=== PATIENT | female | born 1995 ===

== ENCOUNTER 2018-02-24 20:35 | Emergency (ER) | payer OTHER ==
[2018-02-24] MEDS ORDERED: Albuterol-Ipratrop 3 mg / 0.5 (3 ml) UD INH STA (22:12)
[2018-02-24] MEDS ORDERED: Albuterol-Ipratrop 3 mg / 0.5 (3 ml) UD ONE (22:21)
--- NOTE | 2018-02-24 23:00 | C.PDOC ---
History Of Present Illness 23 year old female presents to the ER for a dry nonproductive cough, poorly controlled asthma, and digitally/positionally reproducible left lower rib pain beneath the breast. Patient has no nebulizer machine at home. Denies rash, fever , or chills. Time Seen by Provider: 02/24/18 22:04 Chief Complaint (Nursing): Chest Pain History Per: Patient History/Exam Limitations: no limitations Onset/Duration Of Symptoms: Hrs Current Symptoms Are (Timing): Still Present Associated Symptoms: Dyspnea Modifying Factors: None Exacerbating Factors: Movement Alleviating Factors: None Recent travel outside of the [place]: No Past Medical History Reviewed: Historical Data, Nursing Documentation, Vital Signs Vital Signs: Last Vital Signs Temp 99 F 02/24/18 23:54 Pulse 80 02/24/18 23:54 Resp 20 02/24/18 23:54 BP 110/70 02/24/18 23:54 Pulse Ox 98 02/24/18 23:54 - Medical History PMH: Asthma Surgical History: Appendectomy Family History: States: Unknown Family Hx - Social History Hx Alcohol Use: Yes Hx Substance Use: No - Immunization History Hx Tetanus Toxoid Vaccination: No Hx Influenza Vaccination: No Hx Pneumococcal Vaccination: No Review Of Systems Constitutional: Negative for: Fever, Chills Cardiovascular: Negative for: Chest Pain, Palpitations Respiratory: Positive for: Cough, Shortness of Breath Gastrointestinal: Negative for: Nausea, Vomiting Musculoskeletal: Positive for: Other (Left rib pain) Physical Exam - Physical Exam Appears: Non-toxic Skin: Normal Color, Warm, Dry Head: Atraumatic, Normacephalic Oral Mucosa: Moist Chest: Symmetrical, Tenderness (Digitally reproducible pain below left breast to anterior mid clavicular and axillary line around T5) Cardiovascular: Rhythm Regular Respiratory: No Rales, No Rhonchi, Wheezing (Mild inspiratory and expiratory) Gastrointestinal/Abdominal: Soft, No Tenderness Neurological/Psych: Oriented x3, Normal Speech ED Course And Treatment O2 Sat by Pulse Oximetry: 100 (Room air) Pulse Ox Interpretation: Normal Medical Decision Making Medical Decision Making: asthma exacerbation, moderate MDI technique, costochondritis. Disposition Doctor Will See Patient In The: Office Counseled Patient/Family Regarding: Studies Performed, Diagnosis - Disposition Disposition: HOME/ ROUTINE Disposition Time: 23:01 Condition: GOOD Additional Instructions: prednisone 40 mg daily for 4 more days (to complete 5 days of prednisone) Pepcid 20 mg @ night to prevent stomach irritation from the prednisone Albuterol puffer using the Aerochamber Spacer 5-7 x/day (2 puffs each time, by 15 seconds) follow-up your pmd or our Clinic as needed. Prescriptions: Albuterol HFA [Ventolin HFA 90 mcg/actuation (8 g)] 200 puff IH Q4H PRN #2 puff PRN Reason: asthma Albuterol/Ipratropium [Duoneb 3 MG/3 Ml-0.5 MG/3 Ml 3 Ml] 6 ml IH Q4H PRN #100 neb PRN Reason: asthma Nebulizer [Compact Compressor Nebulizer] 1 dev XX PRN PRN #1 dev PRN Reason: asthma Prednisone [Deltasone] 40 mg PO DAILY #8 tablet Spacer, Inhalation [Aerochamber] 1 dev IH DAILY #1 dev Instructions: Costochondritis, Asthma, Adult (DC), How to Use Your Metered Dose Inhaler (Adults) Forms: [employer] (Urdu) - Clinical Impression Clinical Impression: Chest discomfort, Asthma - Scribe Statement The provider has reviewed the documentation as recorded by the Scribe Jose Mckoy All medical record entries made by the Scribe were at my direction and personally dictated by me. I have reviewed the chart and agree that the record accurately reflects my personal performance of the history, physical exam, medical decision making, and the department course for this patient. I have also personally directed, reviewed, and agree with the discharge instructions and disposition.
[2018-02-24 23:55] VITALS: BP 110/70; PULSE 80; RESP 20; TEMP 99
[2018-02-25 00:43] VITALS: O2SAT 100
--- NOTE | 2018-02-25 11:08 | CARD ---
APPROVED REPORT EKG Measurement Heart [id number] MD [id number] <Conclusion> Normal sinus rhythm with sinus arrhythmia Normal ECG
== END 2018-02-24 23:54 | disposition home or self-care (01) ==
LOC: C.ER 20:35
DX: J45.909 Unspecified asthma, uncomplicated (principal); R07.89 Other chest pain; F17.210 Nicotine dependence, cigarettes, uncomplicated

== ENCOUNTER 2018-06-10 18:22 | Emergency (ER) | payer OTHER ==
[2018-06-10 18:38] VITALS: BP 99/62; PULSE 88; RESP 19; TEMP 98.6; O2SAT 97
--- NOTE | 2018-06-10 19:03 | C.PDOC ---
History Of Present Illness 23 year old female presents to the ED with rash under her nose since a week ago. She notes that the skin becomes very dry on washing and it is painful to touch. She also complains of rhinorrhea. She denies taking any medication to relieve symptoms. She denies any fever, chills, and nausea. Time Seen by Provider: 06/10/18 18:54 Chief Complaint (Nursing): Abnormal Skin Integrity History Per: Patient History/Exam Limitations: no limitations Onset/Duration Of Symptoms: Days Current Symptoms Are (Timing): Still Present Past Medical History Vital Signs: Last Vital Signs Temp 98.6 F 06/10/18 18:34 Pulse 88 06/10/18 18:34 Resp 19 06/10/18 18:34 BP 99/62 L 06/10/18 18:34 Pulse Ox 97 06/10/18 18:34 - Medical History PMH: Asthma Surgical History: Appendectomy Family History: States: Unknown Family Hx - Social History Hx Alcohol Use: Yes Hx Substance Use: No - Immunization History Hx Tetanus Toxoid Vaccination: No Hx Influenza Vaccination: No Hx Pneumococcal Vaccination: No Review Of Systems Except As Marked, All Systems Reviewed And Found Negative. Constitutional: Negative for: Fever, Chills ENT: Positive for: Nose Pain (rash at the nasal philtrum ), Nose Discharge Gastrointestinal: Negative for: Nausea Physical Exam - Physical Exam Appears: Well, Non-toxic, No Acute Distress Skin: Warm, Dry, Rash (bright erythema and crusting with fine papules at the nasal philtrum) Head: Atraumatic, Normacephalic Eye(s): bilateral: Normal Inspection Nose: Normal Oral Mucosa: Moist Neck: Normal ROM Chest: Symmetrical Extremity: Bilateral: Atraumatic, Normal Color And Temperature, Normal ROM Neurological/Psych: Oriented x3, Normal Speech Gait: Steady ED Course And Treatment O2 Sat by Pulse Oximetry: 97 (RA) Pulse Ox Interpretation: Normal Medical Decision Making Medical Decision Making: Impression: 23 year old female ED with rash at the nasal philtrum Dispo: Patient prescribed Mupirocin 2%. Patient feels comfortable going home and will be discharged. Patient given follow up instructions. Disposition Counseled Patient/Family Regarding: Diagnosis, Need For Followup, Rx Given - Disposition Referrals: Denver Aviles MD [Staff Provider] - Disposition: HOME/ ROUTINE Disposition Time: 19:03 Condition: GOOD Additional Instructions: apply ointment to affected area as directed follow up with maintenance pipefitter if symptoms persist Prescriptions: Mupirocin 2% Ointment [Bactroban Ointment] 15 gm EXT BID #1 tube Instructions: Eczema (Atopic Dermatitis) (DC) Forms: [employer] ([place] Islander) - Clinical Impression Clinical Impression: Dermatitis - PA / COMMUNITY SUPPORT ASSOCIATE / Resident Statement MD/DO has reviewed & agrees with the documentation as recorded. - Scribe Statement The provider has reviewed the documentation as recorded by the Scribe (Lamberto Jeff) All medical record entries made by the Scribe were at my direction and personally dictated by me. I have reviewed the chart and agree that the record accurately reflects my personal performance of the history, physical exam, medical decision making, and the department course for this patient. I have also personally directed, reviewed, and agree with the discharge instructions and disposition.
== END 2018-06-10 19:25 | disposition home or self-care (01) ==
LOC: C.ER 18:22
DX: L30.9 Dermatitis, unspecified (principal)

== ENCOUNTER 2018-06-16 16:18 | Emergency (ER) | payer OTHER ==
[2018-06-16 16:27] VITALS: BP 112/72; PULSE 76; RESP 16; TEMP 99; O2SAT 97
--- NOTE | 2018-06-16 17:47 | C.PDOC ---
History Of Present Illness pt here with rash under nose, sts she was seen here recently, given mupurocin, which decreased rash; pt has lost rx, pt now sts she has some satellite new linette-oral lesions and requesting nrew rx for meds. pt sts she has f/u appt in clinic tomorrow. no fever. Time Seen by Provider: 06/16/18 17:25 Chief Complaint (Nursing): Abnormal Skin Integrity History Per: Patient History/Exam Limitations: no limitations Onset/Duration Of Symptoms: Days Current Symptoms Are (Timing): Still Present Severity: Moderate Past Medical History Reviewed: Historical Data, Nursing Documentation, Vital Signs Vital Signs: Last Vital Signs Temp 99 F 06/16/18 16:23 Pulse 76 06/16/18 16:23 Resp 16 06/16/18 16:23 BP 112/72 06/16/18 16:23 Pulse Ox 97 06/16/18 16:23 - Medical History PMH: Asthma Surgical History: Appendectomy Family History: States: No Known Family Hx - Social History Hx Alcohol Use: Yes Hx Substance Use: No - Immunization History Hx Tetanus Toxoid Vaccination: No Hx Influenza Vaccination: No Hx Pneumococcal Vaccination: No Review Of Systems Constitutional: Negative for: Fever, Chills Skin: Positive for: Rash Physical Exam - Physical Exam Appears: Non-toxic, No Acute Distress Skin: Warm, Dry, Other (crusty papules in philtrum of nose, some 2 mm eyrthematous scattered linette-oral papules ) Head: Atraumatic, Normacephalic Eye(s): bilateral: Normal Inspection Neck: Supple Chest: Symmetrical Neurological/Psych: Oriented x3, Normal Speech ED Course And Treatment O2 Sat by Pulse Oximetry: 97 (RA) Pulse Ox Interpretation: Normal Medical Decision Making Medical Decision Making: Patient has been discharged with prescription for Bactroban ointment and instructed to follow up in clinic tomorrow. Disposition Counseled Patient/Family Regarding: Diagnosis, Need For Followup, Rx Given - Disposition Referrals: [facility] [Outside] Disposition: HOME/ ROUTINE Disposition Time: 17:47 Condition: GOOD Additional Instructions: Use thin layer of cream to affected areas two times a day. Follow up in clinic tomorrow. Prescriptions: Mupirocin 2% Ointment [Bactroban Ointment] 15 gm TOP BID #1 tube Instructions: Impetigo (DC) Forms: [facility] (Vincentian), General Discharge Instructions - Clinical Impression Clinical Impression: Impetigo - PA / PROGRESS DEVELOPER / Resident Statement MD/DO has reviewed & agrees with the documentation as recorded. - Scribe Statement The provider has reviewed the documentation as recorded by the Scribe Iraj Figueroa Provider Attestation All medical record entries made by the Scribe were at my direction and personally dictated by me. I have reviewed the chart and agree that the record accurately reflects my personal performance of the history, physical exam, medical decision making, and the department course for this patient. I have also personally directed, reviewed, and agree with the discharge instructions and disposition.
== END 2018-06-16 18:02 | disposition home or self-care (01) ==
LOC: C.ER 16:18
DX: L01.00 Impetigo, unspecified (principal)

== ENCOUNTER 2018-06-30 10:03 | Emergency (ER) | payer OTHER ==
[2018-06-30] MEDS ORDERED: Albuterol 0.083% Inhal Sol (2.5 mg/3 mL) UD ONE (10:11)
[2018-06-30] MEDS ORDERED: Albuterol 0.083% Inhal Sol (2.5 mg/3 mL) UD INH STA (10:20)
[2018-06-30 10:21] VITALS: PULSE 103; TEMP 98.6; O2SAT 100
[2018-06-30] MEDS ORDERED: Albuterol-Ipratrop 3 mg / 0.5 (3 ml) UD ONE ×2 (10:26→10:31)
[2018-06-30] MEDS ORDERED: Albuterol-Ipratrop 3 mg / 0.5 (3 ml) UD INH STA (10:28)
--- NOTE | 2018-06-30 10:46 | C.PDOC ---
History Of Present Illness 23 y/o female with history of Asthma presents to ED with c/o asthma exacerbation consistent with sob and non productive cough since this morning. Patient is speaking in full sentences and denies fever, chest pain, nausea, vomiting or any other complaints at this time. Time Seen by Provider: 06/30/18 10:19 Chief Complaint (Nursing): Shortness Of Breath History Per: Patient History/Exam Limitations: no limitations Onset/Duration Of Symptoms: Hrs Current Symptoms Are (Timing): Still Present Initiating Event: Upper Respiratory Illness Past Medical History Reviewed: Historical Data, Nursing Documentation, Vital Signs Vital Signs: Last Vital Signs Temp 98.6 F 06/30/18 10:16 Pulse 103 H 06/30/18 10:16 Resp 24 06/30/18 10:16 BP Pulse Ox 100 06/30/18 10:16 - Medical History PMH: Asthma Surgical History: Appendectomy Family History: States: No Known Family Hx - Social History Hx Alcohol Use: Yes Hx Substance Use: No - Immunization History Hx Tetanus Toxoid Vaccination: No Hx Influenza Vaccination: No Hx Pneumococcal Vaccination: No Review Of Systems Constitutional: Negative for: Fever, Chills Cardiovascular: Negative for: Chest Pain Respiratory: Positive for: Cough, Shortness of Breath Gastrointestinal: Negative for: Nausea, Vomiting Physical Exam - Physical Exam Appears: Non-toxic, No Acute Distress Skin: Warm, Dry, No Rash Head: Atraumatic, Normacephalic Eye(s): bilateral: Normal Inspection Oral Mucosa: Moist Neck: Normal ROM, Supple Chest: Symmetrical Cardiovascular: Rhythm Regular Respiratory: No Rales, No Rhonchi, Wheezing (minimal bilateral expiratory) Gastrointestinal/Abdominal: Soft, No Tenderness, No Guarding, No Rebound Extremity: No Pedal Edema, Capillary Refill (<2 seconds) Neurological/Psych: Oriented x3, Normal Speech, Normal Cognition ED Course And Treatment O2 Sat by Pulse Oximetry: 100 (RA) Pulse Ox Interpretation: Normal Progress Note: On re evaluation patient feeling sylvie, in no acute distress and on re exam lungs are clear. Patient discharged with follow up to PMD in 2-3 days. Disposition - Disposition Referrals: Ad[facility] Officer [facility] [Outside] [facility] [Outside] Disposition: HOME/ ROUTINE Disposition Time: 11:00 Condition: IMPROVED Additional Instructions: YAIMA WITT, thank you for letting us take care of you today. Your provider was Jono Ramos DO and you were treated for SOB/ASTHMA. The emergency medical care you received today was directed at your acute symptoms. If you were prescribed any medication, please fill it and take as directed. It may take several days for your symptoms to resolve. Return to the Emergency Department if your symptoms worsen, do not improve, or if you have any other problems. Please contact your doctor or call one of the physicians/clinics you have been referred to that are listed on the Patient Visit Information form that is included in your discharge packet. Bring any paperwork you were given at discharge with you along with any medications you are taking to your follow up visit. Our treatment cannot replace ongoing medical care by a primary care provider outside of the emergency department. Thank you for allowing the [facility] team to be part of your care today. Start prednisone prescription tomorrow morning. Follow up with the clinic in 3-5 days for re-evaluation and further management. Prescriptions: predniSONE [Prednisone] 40 mg PO DAILY #10 tab Instructions: Asthma, Adult (DC) Forms: [employer] ([place] Islander), Work Excuse - Clinical Impression Clinical Impression: Asthma - Scribe Statement The provider has reviewed the documentation as recorded by the Scribe Demetrice Ocasio All medical record entries made by the Carleenibe were at my direction and personally dictated by me. I have reviewed the chart and agree that the record accurately reflects my personal performance of the history, physical exam, medical decision making, and the department course for this patient. I have also personally directed, reviewed, and agree with the discharge instructions and disposition.
[2018-06-30 11:23] VITALS: RESP 16
== END 2018-06-30 11:20 | disposition home or self-care (01) ==
LOC: C.ER 10:03
DX: J45.909 Unspecified asthma, uncomplicated (principal)

== ENCOUNTER 2018-07-09 12:22 | Emergency (ER) | payer OTHER ==
[2018-07-09 12:44] VITALS: BP 117/82; PULSE 80; RESP 19; TEMP 99; O2SAT 100
--- NOTE | 2018-07-09 13:07 | C.PDOC ---
History Of Present Illness 23 y/o female pt presents to the ER for c/o dental pain. Pt reports there is pain in her left upper molar and that her tooth filling fell out. Pt denies fever, chills and trauma. Time Seen by Provider: 07/09/18 12:50 Chief Complaint (Nursing): Dental Pain History Per: Patient History/Exam Limitations: no limitations Onset/Duration Of Symptoms: Hrs Current Symptoms Are (Timing): Still Present Severity: Mild Past Medical History Reviewed: Historical Data, Nursing Documentation, Vital Signs Vital Signs: Last Vital Signs Temp 99 F 07/09/18 12:41 Pulse 80 07/09/18 12:41 Resp 19 07/09/18 12:41 BP 117/82 07/09/18 12:41 Pulse Ox 100 07/09/18 12:41 - Medical History PMH: Asthma Surgical History: Appendectomy Family History: States: Unknown Family Hx - Social History Hx Alcohol Use: Yes Hx Substance Use: No - Immunization History Hx Tetanus Toxoid Vaccination: No Hx Influenza Vaccination: No Hx Pneumococcal Vaccination: No Review Of Systems Except As Marked, All Systems Reviewed And Found Negative. Constitutional: Negative for: Fever, Chills ENT: Positive for: Other (left upper molar dental pain; no trauma to teeth ) Physical Exam - Physical Exam Appears: Well, Non-toxic, No Acute Distress Skin: Normal Color, Warm, Dry Head: Normacephalic Eye(s): bilateral: Normal Inspection, EOMI Ear(s): Bilateral: Normal Teeth: Caries (left upper molar ) Gingiva: Erythema, No Swelling, No Bleeding, No Abscess Throat: Normal Respiratory: Normal Breath Sounds Gastrointestinal/Abdominal: Normal Exam Neurological/Psych: Oriented x3, Normal Speech Gait: Steady ED Course And Treatment O2 Sat by Pulse Oximetry: 100 (RA) Pulse Ox Interpretation: Normal Progress Note: Treated with motrin and Pen VK. Discharged in stable condition Reassessment Condition: Improved Medical Decision Making Medical Decision Making: Impression: dental pain Plans: -- ibuprofen -- penicillin Reassess: Patient is resting comfortably. Tolerating PO. Patient is instructed to f/u with clinic for further evaluation. Disposition Counseled Patient/Family Regarding: Diagnosis, Need For Followup, Rx Given - Disposition Referrals: [facility] [Provider Group] [facility] [Provider Group] Disposition: HOME/ ROUTINE Disposition Time: 13:20 Condition: IMPROVED Additional Instructions: Follow up with dental clinic for further evaluation Prescriptions: Ibuprofen [Motrin Tab] 800 mg PO TID PRN #15 tab PRN Reason: Pain, Mild (1-3) Penicillin VK [Penicillin VK Tab] 1 tab PO TID #21 tab Instructions: Tooth Decay, Adult Forms: [facility] (Polish) - POA Present On Arrival: None - Clinical Impression Clinical Impression: Dental caries, Dental abscess - PA / BRAKE TESTER / Resident Statement / has reviewed & agrees with the documentation as recorded. - Scribe Statement The provider has reviewed the documentation as recorded by the Mey Tong Do All medical record entries made by the Mey were at my direction and personally dictated by me. I have reviewed the chart and agree that the record accurately reflects my personal performance of the history, physical exam, medical decision making, and the department course for this patient. I have also personally directed, reviewed, and agree with the discharge instructions and disposition.
== END 2018-07-09 13:29 | disposition home or self-care (01) ==
LOC: C.ER 12:22
DX: K02.9 Dental caries, unspecified (principal); K04.7 Periapical abscess without sinus

== ENCOUNTER 2019-01-08 01:48 | Emergency (ER) | payer OTHER ==
[2019-01-08 01:57] VITALS: BMI 30.1
[2019-01-08 02:01] VITALS: RESP 18; O2SAT 100
--- NOTE | 2019-01-08 02:28 | C.PDOC ---
History Of Present Illness 23-year-old female presents to the ED for evaluation of an abscess to her right upper inner thigh for two days. Patient has been applying warm compresses tot he area. She states the area has gotten bigger with a ortega, and presents to the ED for further evaluation. She reports having an abscess in the past, and underwent I&D of the same area. She denies fever, chills. Time Seen by Provider: 01/08/19 01:58 Chief Complaint (Nursing): Abnormal Skin Integrity History Per: Patient History/Exam Limitations: no limitations Onset/Duration Of Symptoms: Days (2) Current Symptoms Are (Timing): Still Present Past Medical History Reviewed: Historical Data, Nursing Documentation, Vital Signs Vital Signs: Last Vital Signs Temp 98.1 F 01/08/19 01:57 Pulse 76 01/08/19 01:57 Resp 18 01/08/19 01:57 BP 123/84 01/08/19 01:57 Pulse Ox 100 01/08/19 01:57 Primary Care Provider: FAMILY PROVIDER,NO - Medical History PMH: Asthma Surgical History: Appendectomy Family History: States: Unknown Family Hx - Social History Hx Alcohol Use: Yes Hx Substance Use: No - Immunization History Hx Tetanus Toxoid Vaccination: No Hx Influenza Vaccination: No Hx Pneumococcal Vaccination: No Review Of Systems Constitutional: Negative for: Fever, Chills, Weakness Skin: Positive for: Other (abscess to right upper inner thigh ). Negative for: Rash Neurological: Negative for: Weakness, Numbness, Dizziness Physical Exam - Physical Exam Appears: Non-toxic, No Acute Distress Skin: Normal Color, Warm, No Rash, Other (1cm area of induration and tenderness to right upper inner thigh, with ortega noted ) Extremity: Normal ROM Neurological/Psych: Oriented x3 ED Course And Treatment O2 Sat by Pulse Oximetry: 100 (on RA ) Pulse Ox Interpretation: Normal - Incision & Drainage Of Abscess Prep Used: Sterile Water Procedure: Incised W/Scalpel Blade#: (11), Drained Pus, Irrigated Cavity W/Saline Medical Decision Making Medical Decision Making: Keflex PO given. Unable to pack the area with gauze since the incision hole is too small. Patient advised to apply warm compresses to the area and is given wound check f/u instructions. Disposition Counseled Patient/Family Regarding: Diagnosis, Need For Followup, Rx Given - Disposition Disposition: HOME/ ROUTINE Disposition Time: 02:28 Condition: STABLE Prescriptions: Cephalexin [Keflex] 500 mg PO TID #7 capsule Instructions: Abscess Incision and Drainage (DC) Forms: [facility] (Barbadian), General Discharge Instructions - Clinical Impression Clinical Impression: Abscess - PA / CARTON WRAPPER / Resident Statement MD/DO has reviewed & agrees with the documentation as recorded. - Scribe Statement The provider has reviewed the documentation as recorded by the Scribe (Laurence Pisano) All medical record entries made by the Scribe were at my direction and personally dictated by me. I have reviewed the chart and agree that the record accurately reflects my personal performance of the history, physical exam, medical decision making, and the department course for this patient. I have also personally directed, reviewed, and agree with the discharge instructions and disposition.
[2019-01-08 02:32] VITALS: BP 128/86; PULSE 72; TEMP 98.3
== END 2019-01-08 02:39 | disposition home or self-care (01) ==
LOC: C.ER 01:48
DX: L02.415 Cutaneous abscess of right lower limb (principal)